=== PATIENT | female | born 1980 | race Caucasian/White ===

== ENCOUNTER 2019-12-29 16:23 | Emergency (ER) | payer SELFPAY ==
[2019-12-29] MEDS ORDERED: traMADol 50 MG Tab PO ONE (16:24)
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
[2019-12-29] MEDS ORDERED: Diphtheria,Pertussis(Acell),Tetanus Vaccine 0.5 ML Syringe IM ONE (17:53)
== END 2019-12-29 19:30 | disposition home or self-care (01) ==
LOC: FB.ED 16:23
DX: S22.41XA Multiple fractures of ribs, right side, initial encounter for closed fracture (principal); T70.0XXA Otitic barotrauma, initial encounter; S00.432A Contusion of left ear, initial encounter; S00.83XA Contusion of other part of head, initial encounter; Z23 Encounter for immunization; Y04.0XXA Assault by unarmed brawl or fight, initial encounter
CPT/HCPCS: 71101-RT; 90471; 90715; 99284-25; A9270-GY